=== PATIENT | female | born 1975 | race Caucasian/White ===

== ENCOUNTER → 2019-10-16 12:57 | Outpatient (BNVA) | payer MEDICAID, SELFPAY | PROVIDERS: Visit Provider Counselor Professional | DX: F32.1 Major depressive disorder, single episode, moderate (principal); F41.1 Generalized anxiety disorder | CPT/HCPCS: 90834 ==

== ENCOUNTER → 2019-11-17 09:22 | Outpatient (BNVA) | payer MEDICAID, SELFPAY | PROVIDERS: Visit Provider Psychiatry & Neurology Psychiatry | DX: F41.1 Generalized anxiety disorder (principal); F41.0 Panic disorder [episodic paroxysmal anxiety]; F33.0 Major depressive disorder, recurrent, mild | CPT/HCPCS: 99204 ==